=== PATIENT | female | born 1960 | race Caucasian/White ===

== ENCOUNTER 2017-06-03 00:21 | Inpatient (IN) | payer OTHER ==
[~2017-06-03] VITALS: Ht 165.1 cm; Wt 73.0 kg
[~2017-06-03 00:21] MED LIST: ACTOS15 MG OR; ASPIR-8181 MG OR; BABY ASPIRIN81 MG PO; BACTRIM DS1 TAB PO; BENADRYL 25MG C25 MG PO; BENADRYL 50MG C50 MG OR; BYDUREON SC; BYETTA10 MCG SC; CARDIZEM CD 180 PO; COZAAR50 MG PO; CRESTOR10 MG OR; CRESTOR5 M1 PO; DILAUDID 2MG2 MG/TA1 PO; FLAGYL500 MG PO; FLEXERIL OR; GABAPENTIN300 MG PO; GLIME4T PO; GLUMETZA1000 MG OR; GLUMETZA1000 MG PO; HYDROCHLOROT25 MG OR; JANUMET1 TAB PO; JANUVIA50 MG PO; KEFLEX500 MG PO; LEVEMIR SC; LEVEMIR1000 UNITS SC; LISINOPRIL20 MG OR; LISINOPRIL5 MG OR; LORTAB 10 OR; LOVAZA1 GM PO; LYRICA50 MG PO; LYRICA75 MG PO; MECLIZINE25 MG PO; MEDDOSEPAK OR; METFORMIN1000 MG OR; METFORMIN1000 MG PO; METFORMIN500 M1 OR; METFORMIN500 MG PO; NAPROSYN500 MG PO; NITROGLYCER0.4 MG SL; NOVOLO1 SC; NOVOLOG MIX SC; PRILOSEC20 MG PO; PRINIVIL5 MG OR; ROCEPHIN 1 GM1 GM IM; TORADOL PO; TRAMADOL HCL50 MG PO; UROCIT PO; VICTOZA18 MG/3 ML SC; VYTORIN 10/201 TAB PO; ZOFRAN ODT4 MG PO; ZOFRAN4 MG/TAB PO; [UNRECOGNIZED DRUG - OTHER] PO; allo PO; cozaar PO
[2017-06-03] MEDS ORDERED: LYRICA50 MG PO (00:49)
[2017-06-03] MEDS ORDERED: ELIQUIS5 MG PO (00:49)
[2017-06-03 01:07] LABS: HEMATOCRIT 35.7 % (37.0-47.0); HEMOGLOBIN 12.1 g/dl (12.0-16.0); IMMATURE GRANULOCYTES 0.1 % (0.0-1.0); MEAN CELL VOLUME 90.4 fL CALC (80.0-100.0); MEAN CORPUSCULAR HGB 30.6 pG CALC (26.0-32.0); MEAN CORPUSCULAR HGB CONC 33.9 g/L CALC (32.0-36.0); NEUT# 5.93 thou/uL (2.00-7.15); RED BLOOD COUNT 3.95 mill/uL (4.20-5.60); RED CELL DISTRI WIDTH 13.7 % (11.5-15.5)
[2017-06-03 01:16] LABS: ALBUMIN 4.2 g/dL (3.2-5.0); ALKALINE PHOSPHATASE 95 u/l (38-126); ANION GAP 14 (6-22 (CALC)); BILIRUBIN, TOTAL 0.4 mg/dL (0.0-1.4); BUN 24 mg/dL (7-17); BUN/CREATININE RATIO 24 (12-20 (CALC)); CALCIUM 9.2 mg/dL (8.4-10.2); CARBON DIOXIDE 22 mmol/l (22-30); CHLORIDE 110 mmol/l (95-108); GFR 57 ML/MIN (>=60 (CALC)); GFR FOR AFR.AMER. > 60 ML/MIN (>=60 (CALC)); GLUCOSE 139 mg/dL (65-105); POTASSIUM 4.1 mmol/l (3.5-5.1); SGOT/AST 26 u/l (14-36); SGPT/ALT 47 u/l (9-52); SODIUM 142 mmol/l (137-146); TOTAL PROTEIN 7.1 g/dL (6.3-8.2)
[2017-06-03 01:23] LABS: ACT PARTIAL THROMBO TIME 27.5 SECONDS (20.0-32.5); PROTHROMBIN TIME 10.5 SECONDS (9.0-12.5)
[2017-06-03 01:29] LABS: MYOGLOBIN 29 ng/mL (0 - 62)
[2017-06-03 01:51] LABS: URINE BILIRUBIN - DIPSTICK NEGATIVE (NEGATIVE); URINE BLOOD DIPSTICK NEGATIVE (NEGATIVE); URINE CLARITY CLEAR; URINE COLOR YELLOW; URINE GLUCOSE - DIPSTICK NEGATIVE (NEGATIVE); URINE KETONE NEGATIVE (NEGATIVE); URINE LEUK ESTERASE NEGATIVE (NEGATIVE); URINE NITRITE - DIPSTICK NEGATIVE (Negative); URINE PH 5.5 (4.5-8.0); URINE PROTEIN - DIPSTICK NEGATIVE (NEG-TRACE); URINE UROBILINOGEN - DIPSTICK 0.2 E.U./dL (0.2)
[2017-06-03 02:48] LABS: CHOLESTEROL HDL RATIO 1.8 (<4.4 (CALC))
[2017-06-03 04:40] VITALS: BP 105/68
[2017-06-03 06:15] VITALS: BP 105/60
[2017-06-03 08:30] VITALS: BP 112/62
[2017-06-03 11:21] VITALS: BP 120/81
[2017-06-03 15:45] VITALS: BP 99/63
[2017-06-03 20:40] VITALS: BP 108/72
[2017-06-04 00:22] VITALS: BP 92/58
[2017-06-04 04:24] VITALS: BP 91/54
[2017-06-04 08:00] VITALS: BP 107/60
[2017-06-04 10:39] VITALS: BP 105/68
[2017-06-04 16:03] VITALS: BP 118/77
== END 2017-06-04 17:55 | disposition short-term general hospital (02) | DRG 316 ==
LOC: ED 00:21 → ED-I 02:00 → ED 02:14 → MS2 02:15
PROVIDERS: Emergency Medicine; ADMIT Internal Medicine; ATTEND Internal Medicine
DX: T82.7XXA Infection and inflammatory reaction due to other cardiac and vascular devices, implants and grafts, initial encounter (principal); E11.40 Type 2 diabetes mellitus with diabetic neuropathy, unspecified; I10 Essential (primary) hypertension; E78.2 Mixed hyperlipidemia; J02.0 Streptococcal pharyngitis; I48.91 Unspecified atrial fibrillation; I89.0 Lymphedema, not elsewhere classified; Y83.1 Surgical operation with implant of artificial internal device as the cause of abnormal reaction of the patient, or of later complication, without mention of misadventure at the time of the procedure; Z87.891 Personal history of nicotine dependence; Z86.79 Personal history of other diseases of the circulatory system; Z79.01 Long term (current) use of anticoagulants; Z98.84 Bariatric surgery status

== ENCOUNTER 2017-06-30 20:47 | Emergency (ER) | payer OTHER ==
[~2017-06-30] VITALS: Ht 165.1 cm; Wt 71.0 kg
[~2017-06-30 20:47] MED LIST changes: +ELIQUIS5 MG PO
[2017-06-30] MEDS ORDERED: AUGMENTIN875TAB PO (21:11)
[2017-06-30] MEDS ORDERED: METRONIDAZOL500 MG PO (21:12)
[2017-06-30 21:42] LABS: HEMATOCRIT 36.4 % (37.0-47.0); HEMOGLOBIN 12.1 g/dl (12.0-16.0); IMMATURE GRANULOCYTES 0.2 % (0.0-1.0); MEAN CELL VOLUME 91.9 fL CALC (80.0-100.0); MEAN CORPUSCULAR HGB 30.6 pG CALC (26.0-32.0); MEAN CORPUSCULAR HGB CONC 33.2 g/L CALC (32.0-36.0); NEUT# 2.1 thou/uL (2.00-7.15); RED BLOOD COUNT 3.96 mill/uL (4.20-5.60); RED CELL DISTRI WIDTH 14.9 % (11.5-15.5)
[2017-06-30 21:52] LABS: URINE BILIRUBIN - DIPSTICK NEGATIVE (NEGATIVE); URINE BLOOD DIPSTICK NEGATIVE (NEGATIVE); URINE CLARITY CLEAR; URINE COLOR YELLOW; URINE GLUCOSE - DIPSTICK NEGATIVE (NEGATIVE); URINE KETONE NEGATIVE (NEGATIVE); URINE LEUK ESTERASE TRACE (NEGATIVE); URINE NITRITE - DIPSTICK NEGATIVE (Negative); URINE PH 5.5 (4.5-8.0); URINE PROTEIN - DIPSTICK NEGATIVE (NEG-TRACE); URINE SPECIFIC GRAVITY >=1.030; URINE UROBILINOGEN - DIPSTICK 0.2 E.U./dL (0.2)
[2017-06-30 22:01] LABS: ALKALINE PHOSPHATASE 78 u/l (38-126); AMYLASE 188 u/l (30-110); ANION GAP 15 (6-22 (CALC)); BILIRUBIN, TOTAL 0.3 mg/dL (0.0-1.4); BUN 12 mg/dL (7-17); BUN/CREATININE RATIO 12 (12-20 (CALC)); CALCIUM 9.2 mg/dL (8.4-10.2); CARBON DIOXIDE 22 mmol/l (22-30); CHLORIDE 112 mmol/l (95-108); GFR 57 ML/MIN (>=60 (CALC)); GFR FOR AFR.AMER. > 60 ML/MIN (>=60 (CALC)); GLUCOSE 65 mg/dL (65-105); LIPASE 744 u/l (23-300); POTASSIUM 3.5 mmol/l (3.5-5.1); SGOT/AST 33 u/l (14-36); SGPT/ALT 48 u/l (9-52); SODIUM 145 mmol/l (137-146); TOTAL PROTEIN 6.5 g/dL (6.3-8.2)
[2017-06-30 22:04] LABS: ACT PARTIAL THROMBO TIME 30.2 SECONDS (20.0-32.5); INTERNATIONAL NORMALIZED RATIO 1.2 RATIO (0.7-1.3); PROTHROMBIN TIME 13.2 SECONDS (9.0-12.5)
[2017-06-30 22:32] LABS: C. DIFFICILE TOXIN A&B NEGATIVE (NEGATIVE)
[2017-07-01 00:35] VITALS: BP 117/72
== END 2017-07-01 00:45 | disposition short-term general hospital (02) | DRG 379 ==
LOC: ED 20:47
DX: K92.2 Gastrointestinal hemorrhage, unspecified (principal); E11.29 Type 2 diabetes mellitus with other diabetic kidney complication; N18.3 Chronic kidney disease, stage 3 (moderate); R19.7 Diarrhea, unspecified; I48.91 Unspecified atrial fibrillation; K52.9 Noninfective gastroenteritis and colitis, unspecified; R42 Dizziness and giddiness; R19.5 Other fecal abnormalities; Z79.01 Long term (current) use of anticoagulants; Z98.84 Bariatric surgery status; Z95.0 Presence of cardiac pacemaker
CPT/HCPCS: G0328; Q9967

== ENCOUNTER 2017-12-01 14:46 | Emergency (ER) | payer OTHER ==
[~2017-12-01] VITALS: Ht 165.1 cm; Wt 69.5 kg
[~2017-12-01 14:46] MED LIST changes: +AUGMENTIN875TAB PO; +METRONIDAZOL500 MG PO
[2017-12-01 15:40] LABS: HEMATOCRIT 33.6 % (37.0-47.0); HEMOGLOBIN 10.8 g/dl (12.0-16.0); IMMATURE GRANULOCYTES 0.6 % (0.0-1.0); MEAN CELL VOLUME 98.5 fL CALC (80.0-100.0); MEAN CORPUSCULAR HGB 31.7 pG CALC (26.0-32.0); MEAN CORPUSCULAR HGB CONC 32.1 g/L CALC (32.0-36.0); NEUT# 3.61 thou/uL (2.00-7.15); RED BLOOD COUNT 3.41 mill/uL (4.20-5.60); RED CELL DISTRI WIDTH 13.3 % (11.5-15.5)
[2017-12-01 16:02] LABS: ANION GAP 15 (6-22 (CALC)); BUN 21 mg/dL (7-17); BUN/CREATININE RATIO 20 (12-20 (CALC)); CALCIUM 9.2 mg/dL (8.4-10.2); CARBON DIOXIDE 25 mmol/l (22-30); CHLORIDE 107 mmol/l (95-108); GFR 57 ML/MIN (>=60 (CALC)); GFR FOR AFR.AMER. > 60 ML/MIN (>=60 (CALC)); GLUCOSE 91 mg/dL (65-105); POTASSIUM 4.8 mmol/l (3.5-5.1); SODIUM 142 mmol/l (137-146)
[2017-12-01] MEDS ORDERED: LOMOTIL2.5 MG PO (17:01)
[2017-12-01] MEDS ORDERED: FLORASTOR250 M1 PO (17:01)
[2017-12-01] MEDS ORDERED: CHOLESTYRAMI XX (17:01)
[2017-12-01] MEDS ORDERED: ESTRACE0.1 MG/GM VA (17:02)
[2017-12-01 17:24] VITALS: BP 128/59
== END 2017-12-01 17:25 | disposition home or self-care (01) | DRG 556 ==
LOC: ED 14:46
PROVIDERS: Family Medicine
DX: M79.602 Pain in left arm (principal); R22.32 Localized swelling, mass and lump, left upper limb; Z95.0 Presence of cardiac pacemaker; Z98.890 Other specified postprocedural states

== ENCOUNTER 2019-01-12 08:17 | Emergency (ER) | payer OTHER ==
[~2019-01-12] VITALS: Ht 165.1 cm; Wt 86.0 kg
[~2019-01-12 08:17] MED LIST changes: +CHOLESTYRAMI XX; +ESTRACE0.1 MG/GM VA; +FLORASTOR250 M1 PO; +LOMOTIL2.5 MG PO
[2019-01-12] MEDS ORDERED: LYRICA75 MG PO (08:28)
[2019-01-12] MEDS ORDERED: PROBIOTI2 (08:29)
[2019-01-12] MEDS ORDERED: COQ-10100 MG PO (08:29)
[2019-01-12] MEDS ORDERED: IRON (FERROUS S50 MG PO (08:30)
[2019-01-12] MEDS ORDERED: WOMENS MULTI VITAMIN PO (08:31)
[2019-01-12] MEDS ORDERED: TORADOL PO (10:03)
[2019-01-12 10:50] VITALS: BP 125/62
== END 2019-01-12 11:00 | disposition home or self-care (01) | DRG 605 ==
LOC: ED 08:17
DX: S50.02XA Contusion of left elbow, initial encounter (principal); S80.02XA Contusion of left knee, initial encounter; E11.9 Type 2 diabetes mellitus without complications; I10 Essential (primary) hypertension; M10.9 Gout, unspecified; I48.91 Unspecified atrial fibrillation; Z95.0 Presence of cardiac pacemaker; W01.0XXA Fall on same level from slipping, tripping and stumbling without subsequent striking against object, initial encounter; Y92.238 Other place in hospital as the place of occurrence of the external cause; Y99.0 Civilian activity done for income or pay

== ENCOUNTER 2019-09-22 14:44 | Emergency (ER) | payer OTHER ==
[~2019-09-22] VITALS: Ht 167.6 cm; Wt 98.5 kg
[~2019-09-22 14:44] MED LIST changes: +COQ-10100 MG PO; +IRON (FERROUS S50 MG PO; +PROBIOTI2; +WOMENS MULTI VITAMIN PO
[2019-09-22 15:21] LABS: HEMATOCRIT 40.5 % (37.0-47.0); HEMOGLOBIN 13.4 g/dl (12.0-16.0); IMMATURE GRANULOCYTES 0.4 % (0.0-5.0); MEAN CELL VOLUME 95.5 fL CALC (80.0-100.0); MEAN CORPUSCULAR HGB 31.6 pG CALC (26.0-32.0); MEAN CORPUSCULAR HGB CONC 33.1 g/L CALC (32.0-36.0); RED BLOOD COUNT 4.24 mill/uL (4.20-5.60); RED CELL DISTRI WIDTH 12.4 % (11.5-15.5)
[2019-09-22 15:32] LABS: URINE BILIRUBIN - DIPSTICK NEGATIVE (NEGATIVE); URINE BLOOD DIPSTICK LARGE (NEGATIVE); URINE GLUCOSE - DIPSTICK NEGATIVE (NEGATIVE); URINE KETONE NEGATIVE (NEGATIVE); URINE LEUK ESTERASE NEGATIVE (NEGATIVE); URINE NITRITE - DIPSTICK NEGATIVE (Negative); URINE PROTEIN - DIPSTICK 100 mg/dL (NEG-TRACE); URINE SPECIFIC GRAVITY >=1.030; URINE UROBILINOGEN - DIPSTICK 0.2 E.U./dL (0.2)
[2019-09-22 15:34] LABS: URINE COLOR BROWN
[2019-09-22 15:35] LABS: URINE RBC TNTC RBC/hpf (0-5); URINE SQUAMOUS EPITHELIAL CELL FEW EPI/hpf (0-FEW)
[2019-09-22 16:01] LABS: ALBUMIN 4.2 g/dL (3.2-5.0); ALKALINE PHOSPHATASE 130 u/l (38-126); ANION GAP 14 (6-22 (CALC)); BILIRUBIN, TOTAL 0.3 mg/dL (0.0-1.4); BUN 25 mg/dL (7-17); BUN/CREATININE RATIO 23 (12-20 (CALC)); CHLORIDE 112 mmol/l (95-108); CREATININE 1.1 mg/dL (0.5-1.0); GFR 51 ML/MIN (>=60 (CALC)); GFR FOR AFR.AMER. > 60 ML/MIN (>=60 (CALC)); SGOT/AST 24 u/l (14-36); SODIUM 141 mmol/l (137-146); TOTAL PROTEIN 7.2 g/dL (6.3-8.2)
[2019-09-22 16:02] LABS: CARBON DIOXIDE 19 mmol/l (22-30)
[2019-09-22] MEDS ORDERED: LORTAB 1010 MG PO (17:21)
[2019-09-22] MEDS ORDERED: TAMSULOSIN0.4 MG PO (17:21)
== END 2019-09-22 18:14 | disposition home or self-care (01) | DRG 694 ==
LOC: ED 14:44
PROVIDERS: Emergency Medicine
DX: N20.0 Calculus of kidney (principal); E11.65 Type 2 diabetes mellitus with hyperglycemia; I10 Essential (primary) hypertension; I48.91 Unspecified atrial fibrillation; Z95.0 Presence of cardiac pacemaker; Z87.442 Personal history of urinary calculi

== ENCOUNTER 2019-09-23 11:53 | Emergency (ER) | payer OTHER ==
[~2019-09-23] VITALS: Ht 167.6 cm; Wt 86.0 kg
[~2019-09-23 11:53] MED LIST changes: +LORTAB 1010 MG PO; +TAMSULOSIN0.4 MG PO
[2019-09-23 12:15] LABS: GFR 51 ML/MIN (>=60 (CALC)); GFR FOR AFR.AMER. > 60 ML/MIN (>=60 (CALC))
[2019-09-23 12:47] LABS: HEMATOCRIT 37.7 % (37.0-47.0); HEMOGLOBIN 12.5 g/dl (12.0-16.0); IMMATURE GRANULOCYTES 0.3 % (0.0-5.0); MEAN CELL VOLUME 96.7 fL CALC (80.0-100.0); MEAN CORPUSCULAR HGB 32.1 pG CALC (26.0-32.0); MEAN CORPUSCULAR HGB CONC 33.2 g/L CALC (32.0-36.0); NEUT# 4.54 thou/uL (2.00-7.15); RED BLOOD COUNT 3.9 mill/uL (4.20-5.60); RED CELL DISTRI WIDTH 12.6 % (11.5-15.5)
[2019-09-23 12:49] LABS: ALBUMIN 3.7 g/dL (3.2-5.0); ALKALINE PHOSPHATASE 108 u/l (38-126); ANION GAP 12 (6-22 (CALC)); BILIRUBIN, TOTAL 0.3 mg/dL (0.0-1.4); BUN 22 mg/dL (7-17); BUN/CREATININE RATIO 21 (12-20 (CALC)); CARBON DIOXIDE 20 mmol/l (22-30); CHLORIDE 109 mmol/l (95-108); GFR 57 ML/MIN (>=60 (CALC)); GFR FOR AFR.AMER. > 60 ML/MIN (>=60 (CALC)); POTASSIUM 4.5 mmol/l (3.5-5.1); SGOT/AST 24 u/l (14-36); SODIUM 137 mmol/l (137-146); TOTAL PROTEIN 6.5 g/dL (6.3-8.2)
[2019-09-23 12:53] LABS: PROTHROMBIN TIME 10.1 SECONDS (9.0-12.5)
[2019-09-23 13:01] LABS: MYOGLOBIN 39 ng/mL (0 - 62)
[2019-09-23 14:05] VITALS: BP 147/69
== END 2019-09-23 14:05 | disposition short-term general hospital (02) | DRG 65 ==
LOC: ED 11:53
PROVIDERS: Emergency Medicine
DX: I63.9 Cerebral infarction, unspecified (principal); G81.94 Hemiplegia, unspecified affecting left nondominant side; H53.8 Other visual disturbances; R47.81 Slurred speech; E11.9 Type 2 diabetes mellitus without complications; I10 Essential (primary) hypertension; I48.91 Unspecified atrial fibrillation; R29.704 NIHSS score 4; Z86.79 Personal history of other diseases of the circulatory system; Z95.0 Presence of cardiac pacemaker; Z79.01 Long term (current) use of anticoagulants

== ENCOUNTER 2020-01-17 04:42 | Observation (INO) | payer OTHER ==
[~2020-01-17] VITALS: Ht 167.6 cm; Wt 88.0 kg
--- NOTE | 2020-01-17 04:42 | NUR ---
IMMEDIATELY TO ROOM 9. INITIAL COMPLAINT IS ELEVATED B/P BUT C/O CHEST PRESSURE AND HEARTBURN ALONG WITH JAW PAIN
--- NOTE | 2020-01-17 04:43 | NUR ---
PT. TO ROOM 9 WITH C/O " HEART BURN" PT. STATES SHE AWOKE THIS AM WITH CRUSHING PAIN.
[2020-01-17 05:06] LABS: HEMATOCRIT 39.3 % (37.0-47.0); HEMOGLOBIN 12.6 g/dl (12.0-16.0); IMMATURE GRANULOCYTES 0.4 % (0.0-5.0); MEAN CELL VOLUME 97.8 fL CALC (80.0-100.0); MEAN CORPUSCULAR HGB 31.3 pG CALC (26.0-32.0); MEAN CORPUSCULAR HGB CONC 32.1 g/L CALC (32.0-36.0); NEUT# 3.37 thou/uL (2.00-7.15); RED BLOOD COUNT 4.02 mill/uL (4.20-5.60); RED CELL DISTRI WIDTH 12.9 % (11.5-15.5)
[2020-01-17] MEDS ORDERED: METFORMIN500 MG PO (05:06)
[2020-01-17] MEDS ORDERED: NAMZARIC PO (05:07)
[2020-01-17] MEDS ORDERED: CLINDAMYCIN HC150 MG PO (05:08)
--- NOTE | 2020-01-17 05:11 | NUR ---
PO ASA, NITRO PASTE AND MAGIC MOUTH WASH GIVEN PERMD ORDER.
[2020-01-17 05:16] LABS: ALBUMIN 4.3 g/dL (3.2-5.0); ALKALINE PHOSPHATASE 77 u/l (38-126); AMYLASE 333 u/l (30-110); ANION GAP 14 (6-22 (CALC)); BILIRUBIN, TOTAL 0.4 mg/dL (0.0-1.4); BUN 26 mg/dL (7-17); BUN/CREATININE RATIO 27 (12-20 (CALC)); CARBON DIOXIDE 24 mmol/l (22-30); CHLORIDE 107 mmol/l (95-108); GFR 57 ML/MIN (>=60 (CALC)); GFR FOR AFR.AMER. > 60 ML/MIN (>=60 (CALC)); POTASSIUM 4.6 mmol/l (3.5-5.1); SGOT/AST 39 u/l (14-36); SODIUM 139 mmol/l (137-146)
[2020-01-17 05:22] LABS: LIPASE 1990 u/l (23-300)
[2020-01-17 05:28] LABS: MYOGLOBIN 126 ng/mL (0 - 62)
--- NOTE | 2020-01-17 06:15 | NUR ---
PT. STATES, " I FEEL SO MUCH BETTER MY HEART BURN IS RESOLVED."
--- NOTE | 2020-01-17 06:46 | NUR ---
IN ROOM TO DISCUSS CLINICAL FINDINGS WITH PT. VERBALIZED UNDERSTANDING.
--- NOTE | 2020-01-17 06:55 | NUR ---
BEDSIDE REPORT RECEIVED FROM ALESSIA LEE. PATIENT SITTING UP ON STRETCHER, ALERT AND ORIENTED X3. REPORTS EPIGASTRIC PAIN 12/31. UPDATED ON WAIT TIME FOR ULTRASOUND. VERBAL UNDERSTANDING.
--- NOTE | 2020-01-17 06:55 | NUR ---
REPORT TO GERMAN AGGARWAL.
--- NOTE | 2020-01-17 07:40 | NUR ---
REPORT GIVEN TO ALESSIA PRABHAKAR. PATIENT CONTINUES TO WAIT FOR ULTRASOUND.
--- NOTE | 2020-01-17 07:48 | NUR ---
PT TO ULTRASOUND
--- NOTE | 2020-01-17 08:58 | NUR ---
ADVISED PT OF PLAN OF CARE AND WAITING FOR RESULTS OF ULTRASOUND
--- NOTE | 2020-01-17 09:52 | NUR ---
resting quietly, no chest pain at this time.
--- NOTE | 2020-01-17 11:17 | NUR ---
DENIES ANY PAIN AT THIS TIME, UP AMBULATORY TO RESTROOM WITH NO DISTRESS.
--- NOTE | 2020-01-17 12:32 | NUR ---
REPORT CALLED TO LUCA AGGARWALCOURTROOM REPORTER
--- NOTE | 2020-01-17 12:35 | NUR ---
PT TRANSPORTED TO MED SURG VIA WHEELCHAIR. TELEMETRY IN PLACE. BELONGINGS TRANSPORTED WITH PATIENT
--- NOTE | 2020-01-17 12:45 | NUR ---
PT ARRIVED FROM ER VIA WC WITH STAFF . IV SITE IN PLACE.
--- NOTE | 2020-01-17 13:00 | NUR ---
ASSESSMENT IS COMPLTED: IV SITE IS FREE FROM REDNESS OR EDEMA. HR IS REG,PULSES ARE STRONG X4,ABD IS SOFT WITH ACTIVE BS. BREATH SOUNDS ARE CLEAR, BILATERALLY. NO C/O ABD PAIN VOICED. TELE MONITOR IN PLACE. CONTINUE TO OBSERVE AND MONITOR.
[2020-01-17 13:10] VITALS: BP 147/78
[2020-01-17 15:30] VITALS: BP 137/76
--- NOTE | 2020-01-17 16:30 | NUR ---
PT IS RELAXING IN BED WITH NO DISTRESS NOTED. IV SITE IS FREE FROM REDNESS OR EDEMA.
--- NOTE | 2020-01-17 18:15 | NUR ---
DR HOWELL IN TO VISIT WITH PT.
--- NOTE | 2020-01-17 18:49 | NUR ---
SPOKE WITH LEONARDO AT [facility] RE>:MOLLY PT NOT WORRIED ABOUT TAKING IT TONIGHT . DOSE IS 2110MG
[2020-01-17 19:55] VITALS: BP 149/89
--- NOTE | 2020-01-17 19:55 | NUR ---
PT RESTING IN BED, NO SIGNS OF DISTRESS NOTED, RESP EVEN AND UNLABORED. PT ALERT AND ORIENTED X3, DISCUSSED POC, PT DENIES ANY ABD PAIN AT THIS TIME. PT MEDICATED FOR HEADACHE. ASSESSMENT COMPLETED. CALL LIGHT IN REACH,CONTINUE TO MONITOR.
--- NOTE | 2020-01-17 21:00 | NUR ---
PT RESTING IN BED WATCHING TV, PT VOICES NO NEEDS OR COMPLAINTS AT THIS TIME. CALL LIGHT IN REACH,CONTINUE TO MONITOR.
--- NOTE | 2020-01-17 22:26 | NUR ---
PT RESTING IN BED WITH EYES CLOSED, NO SIGNS OF DISTRESS NOTED, RESP EVEN AND UNLABORED. CALL LIGHT IN REACH,CONTINUE TO MONITOR.
[2020-01-18 00:13] VITALS: BP 150/88
--- NOTE | 2020-01-18 03:28 | NUR ---
PT RESTING IN BED WITH EYES CLOSED, NO SIGNS OF DISTRESS NOTED, RESP EVEN AND UNLABORED. CALL LIGHT IN REACH,CONTINUE TO MONITOR.
[2020-01-18 05:05] VITALS: BP 136/84
[2020-01-18 05:43] LABS: AMYLASE 153 u/l (30-110); LIPASE 553 u/l (23-300)
--- NOTE | 2020-01-18 06:17 | NUR ---
PT SITTING IN CHAIR AT BEDSIDE, PT VOICES NO NEEDS OR COMPLAINTS AT THIS TIME, CALL LIGHT IN REACH,CONTINUE TO MONITOR.
--- NOTE | 2020-01-18 07:25 | NUR ---
REPORT RECEIVED FROM MARITZA BERTRAND. PT SITTING IN CHAIR AT BEDSIDE. CO-WORKER PRESENT TO VISIT. PT DENIES PAIN. REPORTING OF CONCERNS ENCOURAGED. PT STATES ANTICIPATION OF DISCHARGE. DISCHARGE PROCESS REVIEWED. CALL LIGHT REVIEWED AND IN REACH. PT STATES UNDERSTANDING.
[2020-01-18 08:18] VITALS: BP 153/89
[2020-01-18 09:47] VITALS: BP 153/89
--- NOTE | 2020-01-18 10:14 | NUR ---
RHONCHI TO LEFT LOWER LUNG FIELD. INCENTIVE SPIROMETER PROVIDED. PT. INSTRUCTED ON USE AND INDICATION. 2000 ML INCENTIVE VOLUME ACHIEVED, GOAL OF 2500 ML SET. PT. REPORTS HEADACHE, TYLENOL ADMINISTERED, WILL MONITOR FOR EFFECTIVENESS. NO ABDOMINAL PAIN. CLEAR LIQUID DIET REVIEWED. PT STATES UNDERSTANDING.
[2020-01-18] MEDS ORDERED: COZAAR25 MG PO (12:28)
--- NOTE | 2020-01-18 13:29 | NUR ---
Discharge instructions given. Patient verbalizes understanding of same. Discharged in stable condition via Ambulatory to Home with friend. All belongings sent with pt.
== END 2020-01-18 13:23 | disposition home or self-care (01) | DRG 440 ==
LOC: ED 04:42 → ED-I 10:50 → ED 11:30 → MS2 11:31
PROVIDERS: Family Medicine; ADMIT Internal Medicine; ATTEND Internal Medicine
DX: K85.90 Acute pancreatitis without necrosis or infection, unspecified (principal); E11.9 Type 2 diabetes mellitus without complications; I10 Essential (primary) hypertension; I48.91 Unspecified atrial fibrillation; Z86.73 Personal history of transient ischemic attack (TIA), and cerebral infarction without residual deficits; Z86.79 Personal history of other diseases of the circulatory system; Z98.84 Bariatric surgery status; Z95.0 Presence of cardiac pacemaker; Z79.01 Long term (current) use of anticoagulants
CPT/HCPCS: G0378; Q9967

== ENCOUNTER 2020-03-19 17:48 | Observation (INO) | payer OTHER ==
[~2020-03-19] VITALS: Ht 167.6 cm; Wt 90.9 kg
[~2020-03-19 17:48] MED LIST changes: +CLINDAMYCIN HC150 MG PO; +COZAAR25 MG PO; +NAMZARIC PO
--- NOTE | 2020-03-19 17:48 | NUR ---
PT TO ROOM VIA WC LEANING FORWARD C/O RT LOW BACK ,RT FLANK AND RLQ PAIN 9/10.
[2020-03-19 18:18] LABS: HEMATOCRIT 41.3 % (37.0-47.0); HEMOGLOBIN 13.6 g/dl (12.0-16.0); IMMATURE GRANULOCYTES 0.3 % (0.0-5.0); MEAN CELL VOLUME 95.8 fL CALC (80.0-100.0); MEAN CORPUSCULAR HGB 31.6 pG CALC (26.0-32.0); MEAN CORPUSCULAR HGB CONC 32.9 g/dL CAL (32.0-36.0); NEUT# 7.69 thou/uL (2.00-7.15); RED BLOOD COUNT 4.31 mill/uL (4.20-5.60); RED CELL DISTRI WIDTH 12.4 % (11.5-15.5)
[2020-03-19 18:19] LABS: URINE BILIRUBIN - DIPSTICK NEGATIVE (NEGATIVE); URINE BLOOD DIPSTICK LARGE (NEGATIVE); URINE COLOR YELLOW; URINE GLUCOSE - DIPSTICK NEGATIVE (NEGATIVE); URINE KETONE NEGATIVE (NEGATIVE); URINE LEUK ESTERASE NEGATIVE (NEGATIVE); URINE NITRITE - DIPSTICK NEGATIVE (Negative); URINE PROTEIN - DIPSTICK NEGATIVE (NEG-TRACE); URINE SPECIFIC GRAVITY 1.025; URINE UROBILINOGEN - DIPSTICK 0.2 E.U./dL (0.2)
--- NOTE | 2020-03-19 18:20 | NUR ---
PT RESTING WITH EYES CLOSED IN NO DISTRESS AT THIS TIME. VSS.
[2020-03-19] MEDS ORDERED: COZAAR25 MG PO ×2 (18:24→18:25)
[2020-03-19 18:26] LABS: URINE SQUAMOUS EPITHELIAL CELL FEW EPI/hpf (0-FEW); URINE WBC 0-2 WBC/hpf (0-5)
[2020-03-19 18:36] LABS: ALBUMIN 4.7 g/dL (3.2-5.0); BILIRUBIN, TOTAL 0.3 mg/dL (0.0-1.4); CREATININE 1.3 mg/dL (0.5-1.0); TOTAL PROTEIN 7.7 g/dL (6.3-8.2)
[2020-03-19 18:37] LABS: POTASSIUM 5.2 mmol/l (3.5-5.1)
--- NOTE | 2020-03-19 18:50 | NUR ---
BACK FROM XRAY. PT STATES PAIN HAS LESSENED TO A 7 AT THIS TIME
--- NOTE | 2020-03-19 19:03 | NUR ---
RECEIVED HAND OFF REPORT FROM ALESSIA PRABHAKAR. PATIENT RESTING QUIETLY AT THIS TIME FAMILY AT BEDSIDE. PATIENT REPORTS DECREASE IN PAIN LEVER AFTER MEDICATION.
--- NOTE | 2020-03-19 19:58 | NUR ---
HAND OFF REPORT GIVEN TO ALESSIA WAYNETESTER FOOD PRODUCTS FOR ADMIT TO PATIENT FLOOR.
--- NOTE | 2020-03-19 20:05 | NUR ---
PT RECEIVED FROM E.R VIA STRETCHER ACCOMPANIED BY STAFF. GAIT IS STEADY. ASSISTED IN TO BED. ALERT AND ORIENTED X3. RESP EVEN AND UNLABORED. SKIN INTACT. LUNGS CLEAR BILAT. ABD SOFT AND NONDISTENDED WITH BOWEL SOUNDS PRESENT. NO ABD TENDERNESS NOTED ON PALPATION. NO LOWER EXT EDEMA NOTED. PEDAL PULSES PALPATED BILAT. IV SITE PATENT IN RT A.C. WITH NSS AT 100CC/HR HUNG IN E.R. PT RECEIVED DILAUDID IV IN E.R. PRIOR TO COMING TO THE FLOOR. PT DENIES ANY PAIN AT THIS TIME. PT DENIES ANY NAUSEA AT THIS TIME. ORIENTED TO ROOM AND CALL AZUL. PT INFORMED SHE WILL BE NPO AFTER MIDNIGHT FOR PROCEDURE IN A.M. PER E.R REPORT. PT STATES SHE IS AWARE DR NICHOLE IS GOING TO DO A PROCEDURE IN THE AFTERNOON AND WILL REMAIN NPO AFTER MIDNIGHT. PT INFORMED ALL URINE WILL BE STRAINED AND HAT IN BATHROOM. FREQUENT ROUNDS MADE. CALL AZUL WITHIN REACH.
--- NOTE | 2020-03-19 20:10 | NUR ---
Admission Note Report Given to: TONE Transported by: Wheelchair X Stretcher Transported with: X Nurse Transporter X Patent IV [employer] Location: ICU X MS2
[2020-03-19 20:15] VITALS: BP 126/80
--- NOTE | 2020-03-19 20:16 | NUR ---
PATIENT TRANSPORTED TO INPATIENT ROOM 261
--- NOTE | 2020-03-19 21:00 | NUR ---
PT EATING DINNER. OFFERS NO COMPLAINTS OF DISCOMFORT. FREQUENT ROUNDS MADE. CALL AZUL WITHIN REACH.
--- NOTE | 2020-03-19 22:30 | NUR ---
RESTING IN BED WITH EYES CLOSED. RESP EVEN AND UNLABORED. NO DISTRESS NOTED. IV SITE PATENT. CALL AZUL WITHIN REACH.
--- NOTE | 2020-03-19 22:40 | NUR ---
PER MESSAGE TO NURSE FROM DR NICHOLE THE PULLMAN CLERK JONI MADRID RN WAS CALLED AND INFORMED DR NICHOLE HAD SAID TO CONTACT PULLMAN CLERK TO ADD SUGERY ON FOR TUESDAY AT 1PM AND Stratopy TO BE NOTIFIED. THIS SEARCH MARKETING SPECIALIST SPOKE WITH PULLMAN CLERK JONI AGGARWAL AT THIS TIME AND INFORMED HER OF ORDER.
[2020-03-20] VITALS (8 sets, daily range): BP systolic 115–137; BP diastolic 56–79
--- NOTE | 2020-03-20 00:18 | NUR ---
RESTING IN BED WITH EYES CLOSED. NO DISTRESS NOTED. PT IS NPO. IV SITE PATENT. FREQUENT ROUNDS MADE. CALL AZUL WITHIN REACH.
--- NOTE | 2020-03-20 01:00 | NUR ---
PT AMBULATED BACK TO BED FROM BATHROOM. VOIDED 200CC OF YELLOW URINE NO BLOOD NOTED. URINE STRAINED AND NO STONES PRESENT. IV SITE PATENT. PT NPO. CONSENT FORM SIGNED FOR SURGERY IN THE AFTERNOON. PT HAS NO QUESTIONS REGARDING SURGERY . PT AWARE TO REMAIN NPO. ALLERGY BRACELET IS ON. OFFERS NO COMPLAINTS OF DISCOMFORT. FREQUENT ROUNDS MADE. CALL AZUL WITHIN REACH.
--- NOTE | 2020-03-20 02:29 | NUR ---
MEDICATED WITH DILAUDID 1MG IV FOR RT FLANK AND RT BACK DISCOMFORT. PT DENIES ANY NAUSEA. IV SITE PATENT . PT NPO. FREQUENT ROUNDS MADE. CALL AZUL WITHIN REACH.
--- NOTE | 2020-03-20 04:26 | NUR ---
PT AWAKE AMBULATING IN HALLWAY. GAIT IS STEADY. RESP EVEN AND UNLABORED. IV SITE PATENT NO REDNESS OR SWELLING AT SITE. PT REMAINS NPO. ASSESSMENT UNCHANGED. OFFERS NO COMPLAINTS. FREQUENT ROUNDS MADE. CALL AZUL WITHIN REACH.
--- NOTE | 2020-03-20 06:15 | NUR ---
PT HAD A SHOWER. RETURNED TO BED AND IV RECONNECTED. RESP EVEN AND UNLABORED. PT REMAINS NPO. FREQUENT ROUNDS MADE. CALL AZUL WITHIN REACH.
--- NOTE | 2020-03-20 07:10 | NUR ---
REPORT RECEIVED FROM ALESSIA WAYNE;PT APPEARS TO BE SLEEPING IN SEMI FOWLERS POSITION;NO S/S OF DISTRESS NOTED;RESPIRATIONS EVEN AND UNLABORED ON RA;IV FLUIDS INFUSING WITH EASE PER ORDER;NPO STATUS IN PLACE;ALL SAFETY PRECAUTIONS REINFORCED WITH BED IN THE LOWEST POSITION AND CALL LIGHT IN REACH;WILL CONTINUE TO MONITOR
--- NOTE | 2020-03-20 08:50 | NUR ---
PT APPEARS TO BE SLEEPING IN SUPINE POSITION,AWAKES EASILY TO VERBAL STIMULI;VS OBTAINED AND ASSESSMENT COMPLETED;PT REPORTS RT FLANK PAIN RATING 6/10 ON THE PAIN SCALE AND REQUESTS PAIN MEDICATION,PT MEDICATED WITH PRN DILAUDID 1MG IVP PER ORDER;RESPIRATIONS EVEN AND UNLABORED ON RA,CLEAR LUNG SOUNDS;ABDOMEN SOFT ON PALPATION AND ACTIVE IN ALL 4 QUADRANTS;STRONG PEDAL PULSES;SKIN INTACT;#20G TO RAC INFUSING NS @ 100ML/HR,SITE APPEARS HEALTHY;PT DENIES ANY ADDITIONAL NEEDS AT THIS TIME AND IS ENCOURAGED TO CALL FOR ASSISTANCE IF NEEDED;NPO DIET REINFORCED AND PT VERBALIZES UNDERSTANDING;CALL LIGHT IN REACH;WILL CONTINUE TO MONITOR
--- NOTE | 2020-03-20 11:03 | NUR ---
AT BEDSIDE DISCUSSING POC.
--- NOTE | 2020-03-20 11:30 | NUR ---
PT RESTING IN SEMI FOWLERS POSITION ON TALKING ON THE PHONE;RESPIRATIONS EVEN AND UNLABORED ON RA;PT DENIES ANY CURRENT NEEDS AND EXPRESSES EAGERNESS FOR SX;IV FLUIDS INFUSING WITH EASE PER ORDER;NPO DIET REINFORCED;PT DENIES ANY ADDITIONAL NEEDS AT THIS TIME AND IS ENCOURAGED TO CALL FOR ASSISTANCE IF NEEDED;CALL LIGHT IN REACH;WILL CONTINUE TO MONITOR
--- NOTE | 2020-03-20 12:04 | NUR ---
PT TRANSPORTED TO OR IN STABLE CONDITION VIA STRETCHER ACCOMPANIED BY ALESSIA PALUMBO.
--- NOTE | 2020-03-20 17:17 | NUR ---
REPORT RECEIVED FROM [facility]
--- NOTE | 2020-03-20 17:25 | NUR ---
REPORT RECEIVED FROM [facility] NURSE.
--- NOTE | 2020-03-20 17:35 | NUR ---
PT TRANSFERRED FROM PACU. BEDSIDE REPORT RECEIVED FROM ALESSIA VILLANUEVA. PT DROWSY. PT WAS ABLE TO TRANSFER FROM STRETCHER TO BED BY SLIDING OVER. PT ORIENTED TO PERSON, TIME, PLACE AND SITUATION. PT ON 2L MASK. NO PAIN AT THIS TIME. PT GROUGY AND COARSE VOICE. BELONGINGS RECEIVED FROM [employer]. WILL CONTINUE TO MONITOR.
--- NOTE | 2020-03-20 18:35 | NUR ---
SPOKE TO PATIENTS . UPDATED HIM ON PATIENT STATUS AND EXPLAINIED WHY PATIENT IS IN THE ICU.
--- NOTE | 2020-03-20 19:50 | NUR ---
SITTING AT SIDE OF BED. AWAKE, SLT DROWSY, ANSWERS QUESTIONS APPROPRIATELY, SPEECH IS CLEAR. RESP NON-LABORED. O2 MASK CHANGED TO O2 PER NC AT 4 L. O2 SAT MAINTAINING AT 97% BREATH SOUNDS CLEAR, DIMINISHED IN BIBASILAR BASES. NO PERIPHERAL EDEMA, ANDREA HOSE APPLIED. SALINE LOCK IN RAC AND IV IN RW WITH NS AT 125 ML/HR, BOTH IV SITES BENIGN. CRIMINAL JUSTICE SOCIAL WORKER SHOWS SR. MINIMAL ASSIST UP TO BSC, VOIDS SLT CLOUDY BLOODY URINE. C/O BURNING WITH URINATION AND MILD BACK PAIN. DISCUSSED PLAN OF CARE. CALL AZUL IN REACH.
--- NOTE | 2020-03-20 20:30 | NUR ---
SAT AT SIDE OF BED AND ATE 1/2 SANDWICH, PUDDING AND NUTRI GRAIN BAR. TAKING PO FLUIDS WELL. VOIDED ON BSC.
--- NOTE | 2020-03-20 22:10 | NUR ---
UP TO BS. VSS.
--- NOTE | 2020-03-21 | NUR ---
C/O BLADDER SPASM, MEDICATED WITH LEVSIN SL ORDERED. UP TO BSC, VOIDS MODERATE AMOUNTS OF BLOODY URINE. SR ON MONITOR. IV SITES BENIGN.
[2020-03-21 00:05] VITALS: BP 160/78
--- NOTE | 2020-03-21 00:30 | NUR ---
RESTING IN BED WITH EYES CLOSED. RESP NON-LABORED. O2 SAT 94%.
[2020-03-21 00:59] VITALS: BP 137/75
[2020-03-21 02:00] VITALS: BP 119/59
--- NOTE | 2020-03-21 02:30 | NUR ---
VSS. PATIENT UP TO BSC TO VOID, HAVING SOME URGENCY. ASSISTED TO NEW PATIENT GOWN AND PROVIDED WITH MESH PANTIES AND DEDE-PAD.
--- NOTE | 2020-03-21 02:45 | NUR ---
MEDICATED WITH DILAUDID 1 MG SLOW IVP FOR C/O BACK PAIN AND PAINFUL URINATION.
--- NOTE | 2020-03-21 03:00 | NUR ---
RESTING WITH EYES CLOSED. RESP NON-LABORED. O2 DECREASED TO 2 L NC. O2 SAT 93%
[2020-03-21 03:46] VITALS: BP 152/79
--- NOTE | 2020-03-21 04:03 | NUR ---
AWAKE SITTING AT SIDE OF BED. STATES PAIN IS MUCH LESS NOW. TAKING PO FLUIDS WELL. CONTINUES TO VOID MODERATE AMOUNTS BLOODY URINE- COLOR OF CRANBERRY JUICE. VSS. PACED RHYTHM ON MONITOR.
[2020-03-21 06:15] VITALS: BP 175/83
--- NOTE | 2020-03-21 06:15 | NUR ---
O2 AT 1 LNC, O2 SAT 98% RESP NON-LABORED. NO CHANGES TO REPORT. PACED ON MONITOR.
--- NOTE | 2020-03-21 07:30 | NUR ---
PT UP IN BED. PT ALERT AND ORIENTED X4. PT VOIDING VIA BEDSIDE COMMODE. DENIES PAIN AT THIS TIME. NO DISTRESS NOTED. PT PLACED ON RA. OXYGEN SATS ABOVE 94%. PLAN FOR DISCHARGE TODAY. WILL CONTINUE TO MONITOR.
[2020-03-21 08:00] VITALS: BP 134/76
--- NOTE | 2020-03-21 08:30 | NUR ---
DR. HOWELL AT BEDSIDE TO ASSESS PT
[2020-03-21] MEDS ORDERED: LORTAB5 PO (08:32)
[2020-03-21] MEDS ORDERED: TAMSULOSIN0.4 MG PO (08:36)
[2020-03-21] MEDS ORDERED: VANTIN100 MG PO (09:45)
--- NOTE | 2020-03-21 10:03 | NUR ---
DISCHARGE INSTRUCTION GIVEN TO PATIENT. RX SCRIPT GIVEN TO PATIENT. PT VERBALIZED UNDERSTANDING. ALL QUESTIONS ANSWERED. PT RECEIVED A OKAY TO RETURN TO WORK NOTE.
[2020-03-21] MEDS ORDERED: OMNICEF300 MG PO (10:05)
--- NOTE | 2020-03-21 10:10 | NUR ---
Discharge instructions given. Patient verbalizes understanding of same. Discharged in stable condition via Wheelchair to Home with friend. All belongings sent with pt.
== END 2020-03-21 10:10 | disposition home or self-care (01) | DRG 661 ==
LOC: ED 17:48 → ED-I 19:25 → ED 19:32 → MS2 19:33 → ED-I 19:33 → MS2 19:39 → ICU 03-20 17:10
PROVIDERS: Family Medicine; ADMIT Internal Medicine; ATTEND Internal Medicine
PROC: 0TC38ZZ Extirpation of Matter from Right Kidney Pelvis, Via Natural or Artificial Opening Endoscopic (ICD-10-PCS; principal; 2020-03-20)
PROC: 0T768DZ Dilation of Right Ureter with Intraluminal Device, Via Natural or Artificial Opening Endoscopic (ICD-10-PCS; 2020-03-20)
PROC: BT1DZZZ Fluoroscopy of Right Kidney, Ureter and Bladder (ICD-10-PCS; 2020-03-20)
DX: N13.2 Hydronephrosis with renal and ureteral calculous obstruction (principal); I12.9 Hypertensive chronic kidney disease with stage 1 through stage 4 chronic kidney disease, or unspecified chronic kidney disease; E11.22 Type 2 diabetes mellitus with diabetic chronic kidney disease; N18.9 Chronic kidney disease, unspecified; I48.91 Unspecified atrial fibrillation; I25.10 Atherosclerotic heart disease of native coronary artery without angina pectoris; R09.02 Hypoxemia; Z98.84 Bariatric surgery status; Z95.0 Presence of cardiac pacemaker; Z87.891 Personal history of nicotine dependence; Z86.79 Personal history of other diseases of the circulatory system; Z87.442 Personal history of urinary calculi; Z79.01 Long term (current) use of anticoagulants; Z79.84 Long term (current) use of oral hypoglycemic drugs; Z88.1 Allergy status to other antibiotic agents; Z11.59 Encounter for screening for other viral diseases
CPT/HCPCS: G0378; J0131; J1100; J2710; Q9967

== ENCOUNTER 2020-11-04 05:28 | Emergency (ER) | payer OTHER ==
[~2020-11-04] VITALS: Ht 167.6 cm; Wt 88.0 kg
[~2020-11-04 05:28] MED LIST changes: +LORTAB5 PO; +OMNICEF300 MG PO; +VANTIN100 MG PO
[2020-11-04] MEDS ORDERED: COQ10200 MG PO (05:56)
[2020-11-04] MEDS ORDERED: CHOLESTYRAMINE4 G1 PO (05:57)
[2020-11-04] MEDS ORDERED: HYDROCHLOROT12.5 MG PO (05:58)
[2020-11-04] MEDS ORDERED: FERRAPLUS 90 PO (06:00)
[2020-11-04] MEDS ORDERED: METFORMIN500 M2 PO (06:00)
[2020-11-04] MEDS ORDERED: SYSTANE CONTACTS SOO (06:02)
[2020-11-04] MEDS ORDERED: LOSARTAN POTASS50 MG PO (06:03)
[2020-11-04] MEDS ORDERED: HYDROCO/APAP1 TA9 PO (06:51)
[2020-11-04 07:18] VITALS: BP 132/72
== END 2020-11-04 07:18 | disposition home or self-care (01) | DRG 563 ==
LOC: ED 05:28
DX: S93.601A Unspecified sprain of right foot, initial encounter (principal); I10 Essential (primary) hypertension; E11.9 Type 2 diabetes mellitus without complications; I48.91 Unspecified atrial fibrillation; X50.0XXA Overexertion from strenuous movement or load, initial encounter; Y92.234 Operating room of hospital as the place of occurrence of the external cause; Y99.0 Civilian activity done for income or pay; Z86.73 Personal history of transient ischemic attack (TIA), and cerebral infarction without residual deficits; Z79.84 Long term (current) use of oral hypoglycemic drugs; Z95.0 Presence of cardiac pacemaker; Z98.84 Bariatric surgery status

== ENCOUNTER 2021-01-09 07:00 | Day surgery (SDC) | payer OTHER ==
[~2021-01-09 07:00] MED LIST changes: +CHOLESTYRAMINE4 G1 PO; +COQ10200 MG PO; +FERRAPLUS 90 PO; +HYDROCHLOROT12.5 MG PO; +HYDROCO/APAP1 TA9 PO; +LOSARTAN POTASS50 MG PO; +METFORMIN500 M2 PO; -PRILOSEC20 MG PO; +PRILOSEC20 MG/CAP PO; +SYSTANE CONTACTS SOO OU; +[UNRECOGNIZED DRUG - OTHER] PO
[2021-01-09 09:31] VITALS: BP 136/70
== END 2021-01-09 09:35 | disposition home or self-care (01) | DRG 951 ==
LOC: ORM 07:00
PROVIDERS: ATTEND Surgery
PROC: 0DJD8ZZ Inspection of Lower Intestinal Tract, Via Natural or Artificial Opening Endoscopic (ICD-10-PCS; principal; 2021-01-09)
PROC: 0DJ08ZZ Inspection of Upper Intestinal Tract, Via Natural or Artificial Opening Endoscopic (ICD-10-PCS; 2021-01-09)
DX: Z12.11 Encounter for screening for malignant neoplasm of colon (principal); K25.9 Gastric ulcer, unspecified as acute or chronic, without hemorrhage or perforation; K44.9 Diaphragmatic hernia without obstruction or gangrene; I10 Essential (primary) hypertension; E11.9 Type 2 diabetes mellitus without complications; Z86.010 Personal history of colon polyps; Z85.038 Personal history of other malignant neoplasm of large intestine; Z98.84 Bariatric surgery status; Z95.0 Presence of cardiac pacemaker; Z79.84 Long term (current) use of oral hypoglycemic drugs; Z79.899 Other long term (current) drug therapy; Z20.822 Contact with and (suspected) exposure to COVID-19

== ENCOUNTER 2021-04-10 22:23 | Emergency (ER) | payer OTHER ==
[~2021-04-10] VITALS: Ht 168.9 cm; Wt 84.5 kg
[2021-04-10] MEDS ORDERED: PROTONIX40 MG PO (22:54)
[2021-04-10 23:05] LABS: HEMATOCRIT 38.7 % (37.0-47.0); HEMOGLOBIN 12.7 g/dl (12.0-16.0); IMMATURE GRANULOCYTES 0.3 % (0.0-5.0); MEAN CELL VOLUME 96.5 fL CALC (80.0-100.0); MEAN CORPUSCULAR HGB 31.7 pG CALC (26.0-32.0); MEAN CORPUSCULAR HGB CONC 32.8 g/dL CAL (32.0-36.0); NEUT# 4.08 thou/uL (2.00-7.15); RED BLOOD COUNT 4.01 mill/uL (4.20-5.60); RED CELL DISTRI WIDTH 12.9 % (11.5-15.5)
[2021-04-10 23:09] LABS: URINE BILIRUBIN - DIPSTICK NEGATIVE (NEGATIVE); URINE BLOOD DIPSTICK NEGATIVE (NEGATIVE); URINE COLOR YELLOW; URINE GLUCOSE - DIPSTICK NEGATIVE (NEGATIVE); URINE KETONE NEGATIVE (NEGATIVE); URINE LEUK ESTERASE NEGATIVE (NEGATIVE); URINE PH 5.5 (4.5-8.0); URINE PROTEIN - DIPSTICK NEGATIVE (NEG-TRACE); URINE UROBILINOGEN - DIPSTICK 0.2 E.U./dL (0.2)
[2021-04-10 23:13] LABS: URINE NITRITE - DIPSTICK NEGATIVE (Negative)
[2021-04-10 23:23] LABS: ALBUMIN 4.3 g/dL (3.2-5.0); CREATININE 1.4 mg/dL (0.5-1.0); POTASSIUM 3.5 mmol/l (3.5-5.1); TOTAL PROTEIN 7.3 g/dL (6.3-8.2)
[2021-04-10 23:26] LABS: BILIRUBIN, TOTAL 0.2 mg/dL (0.0-1.4)
[2021-04-11] MEDS ORDERED: TORADOL PO (01:13)
[2021-04-11] MEDS ORDERED: PHENERGAN25 MG/TAB PO (01:13)
[2021-04-11 02:02] VITALS: BP 101/68
== END 2021-04-11 02:05 | disposition home or self-care (01) | DRG 392 ==
LOC: ED 22:23
PROVIDERS: Family Medicine
DX: R10.32 Left lower quadrant pain (principal); E11.9 Type 2 diabetes mellitus without complications; I10 Essential (primary) hypertension; Z87.442 Personal history of urinary calculi; Z79.84 Long term (current) use of oral hypoglycemic drugs; E78.5 Hyperlipidemia, unspecified; R73.09 Other abnormal glucose; E55.9 Vitamin D deficiency, unspecified; R30.0 Dysuria; R10.9 Unspecified abdominal pain
CPT/HCPCS: Q9967

== ENCOUNTER 2021-08-05 12:49 | Emergency (ER) | payer OTHER ==
[~2021-08-05] VITALS: Ht 168.9 cm; Wt 78.0 kg
[~2021-08-05 12:49] MED LIST changes: +PHENERGAN25 MG/TAB PO; +PROTONIX40 MG PO
[2021-08-05] MEDS ORDERED: EPIPEN 2-P0.3 MG/0.3 IM (17:38)
[2021-08-05] MEDS ORDERED: PREDNISONE50 MG PO (17:38)
[2021-08-05 18:42] VITALS: BP 157/77
== END 2021-08-05 18:53 | disposition home or self-care (01) | DRG 916 ==
LOC: ED 12:49
DX: T78.02XA Anaphylactic reaction due to shellfish (crustaceans), initial encounter (principal); I10 Essential (primary) hypertension; E11.9 Type 2 diabetes mellitus without complications; Z98.84 Bariatric surgery status; Z95.0 Presence of cardiac pacemaker; Z79.84 Long term (current) use of oral hypoglycemic drugs

== ENCOUNTER 2021-09-03 13:57 | Emergency (ER) | payer OTHER ==
[~2021-09-03] VITALS: Ht 168.9 cm; Wt 100.0 kg
[~2021-09-03 13:57] MED LIST changes: +EPIPEN 2-P0.3 MG/0.3 IM; +PREDNISONE50 MG PO
[2021-09-03 14:40] VITALS: BP 148/72
== END 2021-09-03 14:40 | disposition home or self-care (01) | DRG 125 ==
LOC: ED 13:57
DX: S00.11XA Contusion of right eyelid and periocular area, initial encounter (principal); I10 Essential (primary) hypertension; E11.9 Type 2 diabetes mellitus without complications; W50.0XXA Accidental hit or strike by another person, initial encounter; Y93.89 Activity, other specified; Y92.234 Operating room of hospital as the place of occurrence of the external cause; Y99.0 Civilian activity done for income or pay; Z98.84 Bariatric surgery status; Z79.84 Long term (current) use of oral hypoglycemic drugs; Z95.0 Presence of cardiac pacemaker

== ENCOUNTER 2023-04-05 16:16 | Emergency (ER) | payer OTHER ==
[~2023-04-05] VITALS: Ht 168.9 cm; Wt 84.4 kg
[2023-04-05 16:31] VITALS: BP 157/78
[2023-04-05 17:00] VITALS: BP 128/73
[2023-04-05 17:00] LABS: BASO% 0.6 % (0-3); EOS% 1.2 % (0-8); HEMATOCRIT 36.3 % (37.0-47.0); IMMATURE GRANULOCYTES 0.3 % (0.0-5.0); LYMPH% 21.2 % (15-41); MEAN CORPUSCULAR HGB 31.7 pG CALC (26.0-32.0); MEAN CORPUSCULAR HGB CONC 33.1 g/dL CAL (32.0-36.0); MONO% 10.7 % (2-13); NEUT# 4.34 thou/uL (2.00-7.15); RED BLOOD COUNT 3.78 mill/uL (4.20-5.60); RED CELL DISTRI WIDTH 12.9 % (11.5-15.5)
[2023-04-05 17:02] LABS: URINE BILIRUBIN - DIPSTICK NEGATIVE (NEGATIVE); URINE BLOOD DIPSTICK NEGATIVE (NEGATIVE); URINE COLOR YELLOW; URINE GLUCOSE - DIPSTICK 250 mg/dL (NEGATIVE); URINE KETONE NEGATIVE (NEGATIVE); URINE LEUK ESTERASE NEGATIVE (NEGATIVE); URINE PH 5.5 (4.5-8.0); URINE PROTEIN - DIPSTICK NEGATIVE (NEG-TRACE); URINE SPECIFIC GRAVITY 1.025; URINE UROBILINOGEN - DIPSTICK 0.2 E.U./dL (0.2)
[2023-04-05 17:09] LABS: URINE NITRITE - DIPSTICK NEGATIVE (Negative)
[2023-04-05 17:12] LABS: ALBUMIN 4.3 g/dL (3.2-5.0); CREATININE 2.2 mg/dL (0.5-1.0); POTASSIUM 4.1 mmol/l (3.5-5.1); TOTAL PROTEIN 6.9 g/dL (6.3-8.2)
[2023-04-05 17:13] LABS: BILIRUBIN, TOTAL 0.2 mg/dL (0.02-1.3)
[2023-04-05 18:29] VITALS: BP 128/73
== END 2023-04-05 18:30 | disposition home or self-care (01) | DRG 684 ==
LOC: ED 16:16
PROVIDERS: Family Medicine
DX: N17.9 Acute kidney failure, unspecified (principal); I10 Essential (primary) hypertension; E11.9 Type 2 diabetes mellitus without complications; Z98.84 Bariatric surgery status; Z95.0 Presence of cardiac pacemaker; Z79.84 Long term (current) use of oral hypoglycemic drugs

== ENCOUNTER 2023-06-29 07:24 | Day surgery (SDC) | payer OTHER ==
[~2023-06-29] VITALS: Ht 167.6 cm; Wt 87.1 kg
[2023-06-29] MEDS ORDERED: POTASSIUM CITRATE PO (08:25)
[2023-06-29] MEDS ORDERED: CRESTOR5 MG PO (08:26)
[2023-06-29] MEDS ORDERED: DONEPEZIL10 MG PO (08:27)
[2023-06-29] MEDS ORDERED: VESICARE10 MG PO (08:27)
[2023-06-29 09:48] VITALS: BP 148/78
== END 2023-06-29 09:38 | disposition home or self-care (01) | DRG 93 ==
LOC: ORM 07:24
PROVIDERS: ATTEND Physical Medicine & Rehabilitation
DX: G89.4 Chronic pain syndrome (principal); M25.561 Pain in right knee

== ENCOUNTER 2023-07-13 06:57 | Day surgery (SDC) | payer OTHER ==
[~2023-07-13] VITALS: Ht 167.6 cm; Wt 87.5 kg
[~2023-07-13 06:57] MED LIST changes: +CRESTOR5 MG PO; +DONEPEZIL10 MG PO; +POTASSIUM CITRATE PO; +VESICARE10 MG PO
[2023-07-13 09:13] VITALS: BP 160/89
== END 2023-07-13 09:15 | disposition home or self-care (01) | DRG 556 ==
LOC: ORM 06:57
PROVIDERS: ATTEND Student in an Organized Health Care Education/Training Program
DX: M25.561 Pain in right knee (principal)
CPT/HCPCS: J7325

== ENCOUNTER 2023-08-03 09:35 | Day surgery (SDC) | payer OTHER ==
[2023-08-03 10:41] VITALS: BP 135/73
== END 2023-08-03 11:03 | disposition home or self-care (01) | DRG 554 ==
LOC: ORM 09:35
PROVIDERS: ATTEND Physical Medicine & Rehabilitation
DX: M17.11 Unilateral primary osteoarthritis, right knee (principal); M25.561 Pain in right knee; G89.29 Other chronic pain; M25.461 Effusion, right knee
CPT/HCPCS: J7325

== ENCOUNTER 2025-02-02 13:57 | Emergency (ER) | payer OTHER ==
[~2025-02-02] VITALS: Ht 167.6 cm; Wt 99.7 kg
[~2025-02-02 13:57] MED LIST changes: +LANTUS100 UNIT SC; +LORTAB 5/3255 MG PO; +PROMETHAZINE HY25 M1 PO; +ZETIA10 MG PO
[2025-02-02 14:16] VITALS: BP 198/81
[2025-02-02 14:31] VITALS: BP 143/91
[2025-02-02] MEDS ORDERED: AMOX/K CLAV875 M1 PO (14:36)
[2025-02-02] MEDS ORDERED: Diph, Acellular Pertussis, Tet 0.5 ML/VIAL (Tdap) SDV IM ONE (14:45)
[2025-02-02 14:46] VITALS: BP 136/71
[2025-02-02 15:00] VITALS: BP 136/71
== END 2025-02-02 15:00 | disposition home or self-care (01) | DRG 605 ==
LOC: ED 13:57
DX: S71.152A Open bite, left thigh, initial encounter (principal); S81.852A Open bite, left lower leg, initial encounter; M79.651 Pain in right thigh; I10 Essential (primary) hypertension; E11.9 Type 2 diabetes mellitus without complications; W54.0XXA Bitten by dog, initial encounter; Y93.F9 Activity, other caregiving; Y92.009 Unspecified place in unspecified non-institutional (private) residence as the place of occurrence of the external cause; Y99.0 Civilian activity done for income or pay; Z79.4 Long term (current) use of insulin; Z98.84 Bariatric surgery status; Z95.0 Presence of cardiac pacemaker
CPT/HCPCS: 90715